=== PATIENT | female | born 1955 | race Caucasian/White ===

== ENCOUNTER 2021-09-29 13:57 | Emergency (ER) | payer BC ==
[2021-09-29] MEDS ORDERED: fentaNYL 100 MCG/2 ML SDV IM ONE ×2 (14:59→17:24)
== END 2021-09-29 17:44 | disposition home or self-care (01) ==
LOC: JP.ED 13:57
DX: M25.551 Pain in right hip (principal); M19.90 Unspecified osteoarthritis, unspecified site; Z96.641 Presence of right artificial hip joint; Z79.82 Long term (current) use of aspirin; Z88.8 Allergy status to other drugs, medicaments and biological substances; Z88.1 Allergy status to other antibiotic agents; Z91.048 Other nonmedicinal substance allergy status
CPT/HCPCS: 36415; 73502; 80048; 83605; 85025; 85651; 86140; 96372; 99283; J3010; 99282

== ENCOUNTER 2024-08-30 19:05 | Inpatient (IN) | payer MEDICARE ==
[2024-08-30 19:52] LABS: BASOPHILS ABSOLUTE AUTO 0.03 K/uL (0.00-0.10); BASOPHILS PERCENT AUTO 0.2 % (0.1-1.3); HEMATOCRIT 44.7 % (34.3-46.0); IMMATURE GRAN ABSOLUTE AUTO 0.05 K/uL (0.00-0.23); IMMATURE GRAN PERCENT AUTO 0.4 % (0.0-0.7); LYMPHOCYTES ABSOLUTE AUTO 0.95 K/uL (0.8-3.3); LYMPHOCYTES PERCENT AUTO 7.2 % (11.4-47.7); MEAN CORPUSCULAR HEMOGLOBIN 33.4 pg (31.6-35.5); MEAN CORPUSCULAR HGB CONC 33.6 g/dL (31.6-35.5); MEAN CORPUSCULAR VOLUME 99.6 fL (81.4-99.0); MONOCYTES ABSOLUTE AUTO 0.61 K/uL (0.20-0.90); MONOCYTES PERCENT AUTO 4.6 % (3.3-12.6); NEUTROPHILS ABSOLUTE AUTO 11.54 K/uL (1.0-7.6); NEUTROPHILS PERCENT AUTO 87.6 % (40.0-78.1); PLATELET COUNT,PLT 209 K/uL (130-375); RED BLOOD CELL COUNT 4.49 M/uL (3.77-5.24); WHITE BLOOD CELL COUNT,WBC 13.2 K/uL (3.2-11.0)
[2024-08-30] MEDS: Sodium Chloride 0.9% 1,000 ML IV SCH ×2 (19:57→21:25)
[2024-08-30 20:33] LABS: ALANINE AMINOTRANSFERASE,ALT 38 U/L (12-78); ALBUMIN 3.5 g/dL (3.4-5.0); ALKALINE PHOSPHATASE 86 U/L (46-116); ANION GAP 10.6 mmol/L (5.0-14.0); ASPARTATE AMNIOTRANSFERASE,AST 9 U/L (15-37); BILIRUBIN TOTAL 0.7 mg/dL (0.2-1.0); BLOOD UREA NITROGEN,BUN 12 mg/dL (7-18); CALCIUM 9.1 mg/dL (8.5-10.1); CARBON DIOXIDE,CO2 25 mmol/L (21-32); CHLORIDE,CL 104 mmol/L (100-108); CREATININE 0.9 mg/dL (0.6-1.0); EST CRCL DRUG DOSING (CG) 51.66 mL/min; ESTIMATED GFR 70 mL/min (>60); GLUCOSE RANDOM 100 mg/dL (74-106); POTASSIUM,K 4.3 mmol/L (3.6-5.2); PROTEIN TOTAL,TP 6.9 g/dL (6.4-8.2); SODIUM,NA 140 mmol/L (140-148)
[2024-08-30 21:59] LABS: APPEARANCE,URINE CLEAR (CLEAR); BILIRUBIN,URINE NEGATIVE (NEGATIVE); COLOR,URINE YELLOW (YELLOW); GLUCOSE,URINE NEGATIVE (NEGATIVE); KETONES,URINE NEGATIVE (NEGATIVE); LEUKOCYTE ESTERASE,URINE TRACE (NEGATIVE); NITRITE,URINE NEGATIVE (NEGATIVE); OCCULT BLOOD,URINE SMALL (NEGATIVE); PROTEIN,URINE NEGATIVE (NEGATIVE); UROBILINOGEN,URINE 0.2 EU/dL (0.2-1.0)
[2024-08-30 22:12] LABS: AMORPHOUS SEDIMENT,URINE NOT SEEN; BACTERIA,URINE FEW; EPITHELIAL CELLS,URINE FEW; MUCUS,URINE NOT SEEN; RBC,URINE 0-5 (0-5)
[2024-08-31] MEDS ORDERED: Ondansetron 4 MG/2 ML SDV IV PRN (00:34)
[2024-08-31] MEDS ORDERED: Ondansetron 4 MG Tab.DIS PO PRN (00:34)
[2024-08-31] MEDS ORDERED: Melatonin 3 MG Tab PO PRN (00:34)
[2024-08-31] MEDS: Acetaminophen 325 MG Tab PO PRN (00:50)
[2024-08-31] MEDS: Sodium Chloride 0.9% 1,000 ML IV SCH (00:51)
[2024-08-31] MEDS: Fidaxomicin 200 MG Tab PO SCH (00:56)
[2024-08-31] MEDS: VANCOmycin 125 MG Cap PO SCH ×2 (01:05→08:39)
[2024-08-31 05:58] LABS: HEMOGLOBIN 13.2 g/dL (11.2-15.5); MEAN CORPUSCULAR HEMOGLOBIN 33.2 pg (31.6-35.5); MEAN CORPUSCULAR VOLUME 100.5 fL (81.4-99.0); RED BLOOD CELL COUNT 3.98 M/uL (3.77-5.24); WHITE BLOOD CELL COUNT,WBC 11.4 K/uL (3.2-11.0)
[2024-08-31 06:17] LABS: ANION GAP 11.6 mmol/L (5.0-14.0); CALCIUM 8.5 mg/dL (8.5-10.1); CREATININE 0.8 mg/dL (0.6-1.0); EST CRCL DRUG DOSING (CG) 58.12 mL/min; MAGNESIUM 1.8 mg/dL (1.8-2.4); POTASSIUM,K 3.8 mmol/L (3.6-5.2)
[2024-08-31] MEDS: Lactobacillus Rhamnosus GG (Probiotic) Cap PO SCH (08:39)
[2024-09-01 05:57] LABS: HEMOGLOBIN 13.5 g/dL (11.2-15.5); MEAN CORPUSCULAR HEMOGLOBIN 33.3 pg (31.6-35.5); MEAN CORPUSCULAR HGB CONC 32.9 g/dL (31.6-35.5); MEAN CORPUSCULAR VOLUME 101.2 fL (81.4-99.0); RED BLOOD CELL COUNT 4.05 M/uL (3.77-5.24); WHITE BLOOD CELL COUNT,WBC 7.2 K/uL (3.2-11.0)
== END 2024-09-01 14:12 | disposition home or self-care (01) | DRG 373 ==
LOC: JP.ED 19:05 → JP.MS 23:50 → OBSVTOIN 08-31 14:45
PROVIDERS: ADMIT Registered Nurse; ATTEND Hospitalist
DX: A04.72 Enterocolitis due to Clostridium difficile, not specified as recurrent (principal); E86.0 Dehydration; M19.90 Unspecified osteoarthritis, unspecified site; Z96.649 Presence of unspecified artificial hip joint; Z96.659 Presence of unspecified artificial knee joint; Z87.81 Personal history of (healed) traumatic fracture; Z88.0 Allergy status to penicillin; Z85.828 Personal history of other malignant neoplasm of skin; Z86.16 Personal history of COVID-19; Z90.89 Acquired absence of other organs; Z87.19 Personal history of other diseases of the digestive system
CPT/HCPCS: 36415 ×2; 80048; 80053; 81001; 83735; 85025; 85027; 86140; 87493; A9270 ×5; J7030 ×4; 96360; 96361; 99222; 99232; 99238; 99283; 99284-25; G0378